=== PATIENT | male | born 1975 | race Hispanic/Latino ===

== ENCOUNTER 2024-01-08 11:01 | Inpatient (IN) | payer OTHER ==
[~2024-01-08] VITALS: Ht 167.6 cm; Wt 72.3 kg
[2024-01-08 11:59] LABS: IMMATURE GRANULOCYTE ABSOLUTE 0.03 K/uL (0-1); LYMPHOCYTES # (AUTO) 0.9 K/uL (1.0-4.8); LYMPHOCYTES % (AUTO) 20.7 % (21.0-51.0); MEAN CORPUSCULAR HEMOGLOBIN 42.2 pg (27.0-33.0); MEAN CORPUSCULAR HGB CONC 36.6 g/dL (32.0-36.0); MEAN CORPUSCULAR VOLUME 115.5 fL (79-99); MONOCYTES # (AUTO) 0.2 K/uL (0.1-1.0); MONOCYTES % (AUTO) 3.6 % (3.0-13.0); NEUTROPHILS # (AUTO) 3.1 K/uL (1.8-7.7); NUCLEATED RED BLOOD CELLS 0.5 % (0.0-0.19); PLATELET COUNT (AUTO) 41 K/uL (130-400); RED BLOOD CELL COUNT(AUTO) 1.16 MIL/uL (4.50-6.20); RED CELL DISTRIBUTION WIDTH 18.8 % (11.0-15.5); WHITE BLOOD COUNT (AUTO) 4.2 K/uL (4.8-10.8)
[2024-01-08 12:03] LABS: HEMATOCRIT 13.4 % (42-54)
[2024-01-08 12:07] LABS: INR 1.06 (0.85-1.15); PROTHROMBIN TIME 12.4 SEC (9.6-11.6)
[2024-01-08 12:08] LABS: PARTIAL THROMBOPLASTIN TIME 21.2 SEC (26.3-35.5)
[2024-01-08 12:13] LABS: CREATININE 0.8 mg/dL (0.5-1.3); POTASSIUM 3.6 mmol/L (3.5-5.1)
[2024-01-08 12:18] LABS: ALBUMIN 4.4 g/dL (3.5-5.0); BILIRUBIN,TOTAL 2.1 mg/dL (0.2-1.0); TOTAL PROTEIN, SERUM 8.6 g/dL (6.0-8.3)
[2024-01-08 12:42] LABS: PLATELET MORPHOLOGY COMMENT MARKED DECREASE
[2024-01-08 13:59] LABS: ADD UA MICROSCOPIC YES; APPEARANCE,URINE CLEAR (CLEAR); BILIRUBIN,URINE NEGATIVE (NEGATIVE); COLOR,URINE LIGHT-YELLOW (YELLOW); GLUCOSE, URINE (UA) NEGATIVE (NEGATIVE); KETONES,URINE 20 mg/dL (NEGATIVE); LEUKOCYTE ESTERASE ,URINE NEGATIVE Leu/uL (NEGATIVE); MUCUS,URINE RARE LPF (None Seen); NITRATE,URINE NEGATIVE (NEGATIVE); OCCULT BLOOD,URINE NEGATIVE (NEGATIVE); PH,URINE 6.5 (5.0-8.0); PROTEIN,URINE NEGATIVE (NEGATIVE); RBC,URINE 0-1 /HPF (0-1); WBC,URINE 0-1 /HPF (0-1)
[2024-01-08] MEDS ORDERED: ACETAMINOPHEN 500 MG TABLET PO PRN (17:30)
[2024-01-08 18:50] LABS: IRON, SERUM 264 mcg/dL (65-175); TOTAL IRON BINDING CAPACITY 300 mcg/dL (250-450)
[2024-01-08 19:15] LABS: THYROID STIMULATING HORMONE 0.98 uIU/mL (0.36-3.74)
[2024-01-08] MEDS ORDERED: LORAZEPAM 2 MG/ML 1 ML VIAL IVP PRN (20:00)
[2024-01-08] MEDS ORDERED: PHARMACY COMMUNICATION MISC PRN (20:00)
[2024-01-08] MEDS ORDERED: CHLORDIAZEPOXIDE HCL 25 MG CAP PO PRN (20:00)
[2024-01-08] MEDS: PANTOPRAZOLE 40 MG/VIAL IVP SCH (22:39)
[2024-01-08] MEDS: CYANOCOBALAMIN (VITAMIN B-12) 1000 MCG/ML 1ML VIAL IM ONE (22:39)
[2024-01-09 05:23] LABS: HEMATOCRIT 23.5 % (42-54); IMMATURE GRANULOCYTE ABSOLUTE 0.01 K/uL (0-1); LYMPHOCYTES # (AUTO) 1.3 K/uL (1.0-4.8); LYMPHOCYTES % (AUTO) 55.2 % (21.0-51.0); MEAN CORPUSCULAR HEMOGLOBIN 30.9 pg (27.0-33.0); MEAN CORPUSCULAR HGB CONC 34.9 g/dL (32.0-36.0); MEAN CORPUSCULAR VOLUME 88.7 fL (79-99); MONOCYTES # (AUTO) 0.1 K/uL (0.1-1.0); MONOCYTES % (AUTO) 5.4 % (3.0-13.0); NEUTROPHILS # (AUTO) 0.9 K/uL (1.8-7.7); PLATELET COUNT (AUTO) 27 K/uL (130-400); RED BLOOD CELL COUNT(AUTO) 2.65 MIL/uL (4.50-6.20); WHITE BLOOD COUNT (AUTO) 2.4 K/uL (4.8-10.8)
[2024-01-09 05:49] LABS: ALBUMIN 3.6 g/dL (3.5-5.0); BILIRUBIN,TOTAL 2.1 mg/dL (0.2-1.0); CREATININE 0.7 mg/dL (0.5-1.3); POTASSIUM 3.9 mmol/L (3.5-5.1); TOTAL PROTEIN, SERUM 7.2 g/dL (6.0-8.3)
[2024-01-09 05:56] LABS: LYMPHOCYTES % (MANUAL) 51 % (22-44); MONOCYTES % (MANUAL) 13 % (2-9); SEGMENTED NEUTROPHILS % 36 % (40-70); TOTAL CELLS COUNTED 100
[2024-01-09 05:57] LABS: MAN.DIFF COMMENT-IMPRESSION MANUAL DIFFERENTIAL; PLATELET MORPHOLOGY COMMENT MARKED DECREASE
[2024-01-09 06:40] VITALS: BP 147/89; PULSE 80; RESP 18
[2024-01-09 08:00] VITALS: BP 147/84; PULSE 78; RESP 16
[2024-01-09] MEDS ORDERED: COMPOUND IV REFRIGERATED 1 EACH IVSOLN MISC PRN (09:00)
[2024-01-09] MEDS: FOLIC ACID 5 MG/ML VIAL IV SCH (09:14)
[2024-01-09 11:38] LABS: HEMATOCRIT 25.9 % (42-54)
[2024-01-09 12:00] VITALS: BP 128/70; PULSE 78; RESP 16
[2024-01-09] MEDS: LOSARTAN 25 MG TABLET PO ONE (12:49)
[2024-01-09] MEDS: CYANOCOBALAMIN (VITAMIN B-12) 100 MCG TABLET PO SCH (12:51)
[2024-01-09 16:00] VITALS: BP 114/71; PULSE 71; RESP 16
[2024-01-09 20:00] VITALS: BP 125/77; PULSE 73; RESP 18; O2SAT 96
[2024-01-10] VITALS (16 sets, daily range): BP systolic 92–138; BP diastolic 60–85; PULSE 61–86; RESP 16–18; O2SAT 97
[2024-01-10 05:21] LABS: EOSINOPHILS # (AUTO) 0.01 K/uL (0.00-0.70); EOSINOPHILS % (AUTO) 0.5 % (0.0-8.0); HEMATOCRIT 23.6 % (42-54); IMMATURE GRANULOCYTE ABSOLUTE 0.01 K/uL (0-1); LYMPHOCYTES # (AUTO) 1.3 K/uL (1.0-4.8); MEAN CORPUSCULAR HEMOGLOBIN 30.4 pg (27.0-33.0); MEAN CORPUSCULAR HGB CONC 35.2 g/dL (32.0-36.0); MEAN CORPUSCULAR VOLUME 86.4 fL (79-99); MONOCYTES # (AUTO) 0.3 K/uL (0.1-1.0); MONOCYTES % (AUTO) 12.9 % (3.0-13.0); NEUTROPHILS # (AUTO) 0.5 K/uL (1.8-7.7); NEUTROPHILS % (AUTO) 25.1 % (40.0-77.0); PLATELET COUNT (AUTO) 23 K/uL (130-400); RED BLOOD CELL COUNT(AUTO) 2.73 MIL/uL (4.50-6.20); WHITE BLOOD COUNT (AUTO) 2.1 K/uL (4.8-10.8)
[2024-01-10 05:28] LABS: ALBUMIN 3.5 g/dL (3.5-5.0); BILIRUBIN,TOTAL 1.9 mg/dL (0.2-1.0); CREATININE 0.7 mg/dL (0.5-1.3); POTASSIUM 3.4 mmol/L (3.5-5.1); TOTAL PROTEIN, SERUM 7.3 g/dL (6.0-8.3)
[2024-01-10] MEDS: CYANOCOBALAMIN (VITAMIN B-12) 1,000 MCG TABLET PO SCH (09:00)
[2024-01-10] MEDS ORDERED: MIDAZOLAM HCL 1 MG/ML 2ML VIAL ONE (12:14)
[2024-01-10] MEDS ORDERED: FENTANYL CITRATE PF 50 MCG/1 ML 2ML VIAL ONE (12:14)
[2024-01-11] VITALS: BP 110/69; PULSE 83; RESP 17
[2024-01-11 04:00] VITALS: BP 106/66; PULSE 70; RESP 17
[2024-01-11 08:00] VITALS: BP 107/70; PULSE 73; RESP 17
[2024-01-11 09:59] VITALS: O2SAT 99
[2024-01-11 11:48] VITALS: BP 119/76; PULSE 76; RESP 18
== END 2024-01-11 13:30 | disposition home or self-care (01) | DRG 812 ==
LOC: EDH 11:01 → EDHIP 11:02 → 4CH 01-09 05:01
PROVIDERS: ADMIT Internal Medicine; ATTEND Internal Medicine
PROC: 30233N1 Transfusion of Nonautologous Red Blood Cells into Peripheral Vein, Percutaneous Approach (ICD-10-PCS; principal; 2024-01-08)
DX: D53.9 Nutritional anemia, unspecified (principal); D61.818 Other pancytopenia; I10 Essential (primary) hypertension; E53.9 Vitamin B deficiency, unspecified; Z79.899 Other long term (current) drug therapy
CPT/HCPCS: 36415; 38222; 71045; 74176; 76705; 77012; 80053; 81001; 82270; 82607; 82728; 82746; 83036; 83605; 83690; 84443; 85014; 85018; 85025; 85610; 85730; 86340; 86850; 86880; 86900; 86901; 86923; 88184; 88185; 88189; 93005; 99152; 99153; C9113; G0378; J2250; J3010; J3420; J3490; P9016; C1830; G0500